=== PATIENT | female | born 1970 | race Caucasian/White ===

== ENCOUNTER 2021-04-23 10:46 | Day surgery (SDC) | payer OTHER ==
[2021-04-21 16:16] VITALS: BMI 28.8
[2021-04-23 12:27] VITALS: PULSE 76; TEMP 98.2
[2021-04-23 12:44] VITALS: BP 135/68
== END 2021-04-23 12:46 | disposition home or self-care (01) ==
LOC: FASU-ENDO 10:46
PROVIDERS: ATTEND Internal Medicine Gastroenterology
PROC: 0DB68ZZ Excision of Stomach, Via Natural or Artificial Opening Endoscopic (ICD-10-PCS; 2021-04-23)
PROC: 0DB48ZX Excision of Esophagogastric Junction, Via Natural or Artificial Opening Endoscopic, Diagnostic (ICD-10-PCS; 2021-04-23)
PROC: 0DB98ZX Excision of Duodenum, Via Natural or Artificial Opening Endoscopic, Diagnostic (ICD-10-PCS; principal; 2021-04-23 11:50)
DX: K29.50 Unspecified chronic gastritis without bleeding (principal); K21.00 Gastro-esophageal reflux disease with esophagitis, without bleeding; R10.13 Epigastric pain

== ENCOUNTER 2021-09-03 11:30 | Day surgery (SDC) | payer OTHER ==
[2021-08-28 14:27] VITALS: BMI 28.8
[2021-09-03 14:50] VITALS: BP 131/88; PULSE 84; TEMP 98.2
== END 2021-09-03 15:00 | disposition home or self-care (01) ==
LOC: FASU-ENDO 11:30
PROVIDERS: ATTEND Internal Medicine Gastroenterology
PROC: 0DJD8ZZ Inspection of Lower Intestinal Tract, Via Natural or Artificial Opening Endoscopic (ICD-10-PCS; principal; 2021-09-03 14:06)
DX: Z86.010 Personal history of colon polyps (principal); K64.1 Second degree hemorrhoids